=== PATIENT | female | born 1940 | race Caucasian/White ===

== ENCOUNTER 2016-06-16 16:15 | Inpatient (IN) ==
[2016-06-16 20:05] LABS: Basophils # 0.1 K/mcL (0.0-0.2); Basophils % 0.4 %; Eosinophils # 0.2 K/mcL (0.0-0.6); Eosinophils % 1.5 %; Hematocrit 33.9 % (35.3-44.9); Hemoglobin 11.3 g/dL (11.5-15.4); Immature Granulocytes % 0.3 % (0-4); Lymphocytes # 1.6 K/mcL (0.6-4.6); Lymphocytes % 12.9 %; Mean Corpuscular HGB Conc 33.3 g/dL (31.6-35.5); Mean Corpuscular Hemoglobin 27.9 pg (28.0-33.3); Mean Corpuscular Volume 83.7 fL (83.0-100.0); Mean Platelet Volume 8.5 fL (9.4-12.4); Monocytes # 1.3 K/mcL (0.0-1.3); Monocytes % 10.3 %; Neutrophils # 9.1 K/mcL (1.6-8.9); Platelet Count 277 K/mcL (140-400); Red Blood Count 4.05 M/mcL (3.82-4.97); Red Cell Distribution Width 14.3 % (11.5-14.5); Segmented Neutrophils % 74.6 %
[2016-06-16 20:17] LABS: Calcium 9.4 mg/dL (8.6-10.8); Potassium 4.9 mEq/L (3.5-4.5)
--- NOTE | 2016-06-16 22:42 | Emergency Department Note ---
Disposition Clinical Impression: Pleural effusion Disposition: Home, Self-Care Condition: Good General Adult HPI - General Chief complaint: ED Shortness of Breath/Dyspnea Stated complaint: ORI, from the cancer center Time Seen by Provider: 06/16/16 18:06 Source: family Limitations: physical limitation Nursing Notes Reviewed: Yes Vital Signs Reviewed: Yes - History of Present Illness HPI Narrative: Female patient with ovarian cancer presents with concern for dyspnea. She was at the outpatient infusion center and was having hypoxia. She was being actively transfused 1 unit of packed red cells for known anemia. Her baseline hemoglobin is between 7 and 11. Her hemoglobin today was 7.5. She has no fever , chills. She is not currently on chemotherapy. She was recently treated with antibiotics for possible pneumonia. Pain Scale: 0 - Related Data Home Medications Medication Instructions Recorded Confirmed Atorvastatin [Lipitor] 10 mg PO HS 11/30/14 06/11/16 Diltiazem HCl [Diltiazem 24Hr Cd] 240 mg PO DAILY 11/30/14 06/11/16 Glyburide/Metformin HCl 1 each PO TID 11/30/14 06/11/16 [Glyburide-Metformin 2.5-500 mg] Multivitamin [Multivitamins] 1 each PO QPM 11/30/14 06/11/16 Ondansetron [Zofran Odt] 4 mg PO Q6H PRN 11/30/14 06/11/16 Prochlorperazine Maleate 10 mg PO Q6HR PRN 11/30/14 06/11/16 [Compazine] Acetaminophen [Tylenol] 650 mg PO Q4H PRN 05/09/16 06/11/16 Cetirizine HCl [All Day Allergy] 10 mg PO DAILY 05/09/16 06/11/16 Docusate Sodium [Dok] 200 mg PO DAILY PRN 05/09/16 06/11/16 Duloxetine HCl [Cymbalta] 60 mg PO DAILY 05/09/16 06/11/16 Ferrous Sulfate [Iron] 325 mg PO DAILY 05/09/16 06/11/16 Magnesium Hydroxide [Milk of 400 mg PO Q4H PRN 05/09/16 06/11/16 Magnesia] Oxybutynin [Ditropan] 5 mg PO DAILY 05/09/16 06/11/16 Quinapril/Hydrochlorothiazide 1 each PO DAILY 05/09/16 06/11/16 [Accuretic 20-12.5 mg Tablet] Previous Rx's Medication Instructions Recorded Docusate [Colace] 100 mg PO BID #60 capsule 05/09/16 Hydrocodone/Acetaminophen [[place] 1 each PO Q4H PRN #15 tablet 05/09/16 5-325 Tablet] Levothyroxine [Synthroid] 88 mcg PO DAILY #30 tablet 06/13/16 Allergies Allergy/AdvReac Type Severity Reaction Status Date / Time cisplatin Allergy Rash Verified 06/16/16 16:24 All systems ED: reviewed and negative except as stated. 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 - Social History Smoking Status: Never smoker Smokeless Tobacco Status: No Alcohol use: Reports: none Drug use: Reports: none Physical Exam Alert and oriented, no acute distress [place] warm and dry TMs clear bilaterally, extraocular muscle movements are normal, pupils equal and reactive to light Trachea midline Cardiovascular exam is without murmur, rub, gallop Diminished bilaterally Abdominal exam is soft, nontender, no peritonitis Back is without CVA tenderness Extremities are well perfused, no cyanosis, clubbing, edema No neurological deficit, cranial nerves II/12 grossly intact, reflexes 5/5, sensation normal - General Limitations: physical limitation General appearance: alert, in no apparent distress Course Vital Signs Temperature 98.9 F 06/16/16 16:24 Pulse Rate 70 06/16/16 16:24 Respiratory Rate 18 06/16/16 16:24 Blood Pressure 148/59 06/16/16 16:24 O2 Sat by Pulse Oximetry 92 L 06/16/16 16:24 Temperature 98.9 F 06/16/16 16:24 Pulse Rate 77 06/16/16 21:50 Respiratory Rate 20 06/16/16 21:50 Blood Pressure 150/61 06/16/16 21:50 O2 Sat by Pulse Oximetry 93 L 06/16/16 21:50 Oxygen Delivery Oxygen Delivery Room Air Medical Decision Making - MDM Narrative Medical decision making narrative: 76-year-old female with concern for malignant pleural effusion. CT scan shows large fusion. Pancultures obtained. I would not initiate antibiotic therapy at this time. I will defer this to the hospitalist team. I discussed the results of the family. She has need for 2 L of supplemental oxygen at this time. She has had no fever. Plan to admit, evaluation for possible malignant pleural effusion. Anemia improved after 1 unit of outpatient Bactrim blood cells. - Medical Records Medical records reviewed: Yes I reviewed the patient's medical records. - Lab Data Lab results reviewed: Yes I reviewed the patient's lab results. Result diagrams: 06/16/16 19:58 06/16/16 19:58 Lab Results 06/16/16 06/16/16 06/16/16 Range/Units 18:46 19:48 19:58 WBC 12.2 H (4.3-11.1) K/mcL RBC 4.05 (3.82-4.97) M/mcL Hgb 11.3 L D (11.5-15.4) g/dL Hct 33.9 L (35.3-44.9) % MCV 83.7 (83.0-100.0) fL MCH 27.9 L (28.0-33.3) pg MCHC 33.3 (31.6-35.5) g/dL RDW 14.3 (11.5-14.5) % Plt Count 277 (140-400) K/mcL MPV 8.5 L (9.4-12.4) fL Immature Gran % 0.3 (0-4) % Seg Neutrophils % 74.6 % Lymphocytes % 12.9 % Monocytes % 10.3 % Eosinophils % 1.5 % Basophils % 0.4 % Neutrophils # 9.1 H (1.6-8.9) K/mcL Lymphocytes # 1.6 (0.6-4.6) K/mcL Monocytes # 1.3 (0.0-1.3) K/mcL Eosinophils # 0.2 (0.0-0.6) K/mcL Basophils # 0.1 (0.0-0.2) K/mcL Sodium (136-145) mEq/L Potassium (3.5-4.5) mEq/L Chloride (98-109) mEq/L Carbon Dioxide (19-29) mEq/L BUN (7-20) mg/dL Creatinine (0.57-1.11) mg/dL Est GFR ( Amer) (> 60) Est GFR (Non-Af Amer) (> 60) BUN/Creatinine Ratio (6-26) Glucose (70-99) mg/dL POC Glucose 71 (58-89) Calculated Osmolality (280-300) Lactic Acid (0.5-2.2) mmol/L Calcium (8.6-10.8) mg/dL Troponin I (0-0.03) ng/mL B-Natriuretic Peptide 56 (0-100) pg/mL 06/16/16 06/16/16 06/16/16 Range/Units 19:58 19:58 19:58 WBC (4.3-11.1) K/mcL RBC (3.82-4.97) M/mcL Hgb (11.5-15.4) g/dL Hct (35.3-44.9) % MCV (83.0-100.0) fL MCH (28.0-33.3) pg MCHC (31.6-35.5) g/dL RDW (11.5-14.5) % Plt Count (140-400) K/mcL MPV (9.4-12.4) fL Immature Gran % (0-4) % Seg Neutrophils % % Lymphocytes % % Monocytes % % Eosinophils % % Basophils % % Neutrophils # (1.6-8.9) K/mcL Lymphocytes # (0.6-4.6) K/mcL Monocytes # (0.0-1.3) K/mcL Eosinophils # (0.0-0.6) K/mcL Basophils # (0.0-0.2) K/mcL Sodium 126 L (136-145) mEq/L Potassium 4.9 H (3.5-4.5) mEq/L Chloride 95 L (98-109) mEq/L Carbon Dioxide 21 (19-29) mEq/L BUN 27 H (7-20) mg/dL Creatinine 1.72 H (0.57-1.11) mg/dL Est GFR ( Amer) 35 L (> 60) Est GFR (Non-Af Amer) 29 L (> 60) BUN/Creatinine Ratio 16 (6-26) Glucose 62 L (70-99) mg/dL POC Glucose (58-89) Calculated Osmolality 265 L (280-300) Lactic Acid 0.7 (0.5-2.2) mmol/L Calcium 9.4 (8.6-10.8) mg/dL Troponin I 0.01 (0-0.03) ng/mL B-Natriuretic Peptide (0-100) pg/mL
[2016-06-17] MEDS ORDERED: Ipratropium/Albuterol Neb 3 ML IH STA (01:36)
[2016-06-17] MEDS ORDERED: Naloxone 0.4 MG/ML INJ IVP PRN (02:01)
[2016-06-17] MEDS ORDERED: Acetaminophen 325 MG TABLET PO PRN ×2 (02:01→13:29)
[2016-06-17] MEDS ORDERED: Furosemide 20 MG/2 ML VIAL IVP ONE (02:03)
--- NOTE | 2016-06-17 02:05 | Internal Med History&Physical ---
Date of Encounter: 06/17/16 Time of Encounter: 01:00 Assessment and Plan (1) Pleural effusion Current visit: Yes Status: Acute Possibly due to malignant effusion. Will consult pulmonology for further advice and management. (2) Acute respiratory failure Current visit: Yes Status: Acute Likely due to large right pleural effusion and bronchospasm. I suspect PRBC transfusion possibly contributed to volume overload. She is on supplement oxygen. Continue. Bronchodilator nebulizations. Qualifiers: Respiratory failure complication: hypoxia Qualified Code(s): J96.01 - Acute respiratory failure with hypoxia (3) Peritoneal carcinoma Current visit: Yes Status: Chronic Oncologist is following the pt as out pt. On chemotherapy (4) Hypothyroidism Current visit: Yes Status: Chronic Continue home dose of synthroid Qualifiers: Hypothyroidism type: unspecified Qualified Code(s): E03.9 - Hypothyroidism , unspecified (5) DVT prophylaxis Current visit: Yes Status: Acute Heparin Internal Medicine - H&P: HPI Chief complaint: Shortness of breath Admitted From: Emergency Dept Plans for Post Hospital Care: Home History of present illness: Ms. 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 She apparently received PRBC transfusion at the infusion center. She was noted to be short of breath and hence sent to the emergency department for evaluation. Patient reports progressively worsening shortness of breath for a few days. Now feeling short of breath at rest. Also reports wheezing. She reports dry cough. No fever or chills. Denies significant chest pain. No nausea or vomiting. Denies abdominal pain, dysuria, hematuria, diarrhea. She was evaluated in the ER on the imaging showed increasing right pleural effusion, concerning for malignant effusion. She is admitted to hospitalist service for further management. Past Med Surg Social Fam HX - Past Medical History Medical history: cancer Psychiatric history: no psych history - Past Surgical History Surgical History: herniorrhaphy, other - Social History Smoking Status: Never smoker Smokeless Tobacco Status: No Alcohol use: none Drug use: none Internal Medicine - H&P: Meds Atorvastatin [Lipitor] 10 mg PO HS 11/30/14 [History] Diltiazem HCl [Diltiazem 24Hr Cd] 240 mg PO DAILY 11/30/14 [History] Glyburide/Metformin HCl [Glyburide-Metformin 2.5-500 mg] 1 each PO TID 11/30/14 [History] Multivitamin [Multivitamins] 1 each PO QPM 11/30/14 [History] Ondansetron [Zofran Odt] 4 mg PO Q6H PRN 11/30/14 [History] Prochlorperazine Maleate [Compazine] 10 mg PO Q6HR PRN 11/30/14 [History] Acetaminophen [Tylenol] 650 mg PO Q4H PRN 05/09/16 [History] Cetirizine HCl [All Day Allergy] 10 mg PO DAILY 05/09/16 [History] Docusate Sodium [Dok] 200 mg PO DAILY PRN 05/09/16 [History] Docusate [Colace] 100 mg PO BID #60 capsule 05/09/16 [Rx] Duloxetine HCl [Cymbalta] 60 mg PO DAILY 05/09/16 [History] Ferrous Sulfate [Iron] 325 mg PO DAILY 05/09/16 [History] Hydrocodone/Acetaminophen [[place] 5-325 Tablet] 1 each PO Q4H PRN #15 tablet 10/18 [Rx] Magnesium Hydroxide [Milk of Magnesia] 400 mg PO Q4H PRN 05/09/16 [History] Oxybutynin [Ditropan] 5 mg PO DAILY 05/09/16 [History] Quinapril/Hydrochlorothiazide [Accuretic 20-12.5 mg Tablet] 1 each PO DAILY 10/18 [History] Levothyroxine [Synthroid] 88 mcg PO DAILY #30 tablet 06/13/16 [Rx] Allergies cisplatin Allergy (Verified 06/16/16 16:24) Rash All Systems PM: A 10-system review of systems was performed and is negative for pertinent findings except as documented above in the HPI. - Constitutional Vitals: Temp Pulse Resp BP Pulse Ox 98.9 F 77 17 153/74 97 06/16/16 23:41 06/16/16 23:41 06/16/16 23:41 06/16/16 23:41 06/16/16 23:45 Exam: General: Short of breath at rest HEENT: Oral mucosa is moist. No conjunctival palor or scleral icterus Neck: No obvious neck swellings Lungs: Diminished breath sound on the right side. B/L wheeze present Cardiac: Regular rate and rhythm. No significant murmurs Abdomen: Distended, non tender. Bowel sounds present Neurological: Alert and oriented. No gross localizing deficits Psych: Not aggressive or agitated Extremities: Mild leg edema Skin: No generalized rash Internal Med - H&P Results - Labs CBC & Chem 7: 06/16/16 19:58 06/16/16 19:58 - Impressions ITS Impressions Chest X-Ray 06/16/16 18:22 IMPRESSION: New moderate to large right pleural effusion with adjacent atelectasis. D/ / Marleen Wyman MD / Marleen Wyman MD Interpreting Provider: Marleen Wyman MD Chest CT 06/16/16 20:20 IMPRESSION: Increasing size of right pleural effusion, now large in size with right lower lobe collapse and partial atelectasis of the right middle and upper lobes. Given enlargement of a left supraclavicular lymph node as compared to the prior examination, findings are concerning for malignant effusion. Thoracentesis may be helpful for further evaluation. D/ / Miguelangel Douglas MD / Miguelangel Douglas MD Interpreting Provider: Miguelangel Douglas MD
[2016-06-17] MEDS: *HR* Heparin 5,000 UNIT/ML VIAL SQ SCH ×2 (09:47→21:48)
--- NOTE | 2016-06-17 12:57 | Electrocardiograph Report ---
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
[2016-06-17] MEDS: Diltiazem CD (24hr) 240 MG CAPSULE PO SCH (13:18)
[2016-06-17] MEDS ORDERED: *HR* HYDROcodone/Acet 5/325 mg TABLET PO PRN (13:29)
--- NOTE | 2016-06-17 14:12 | Event Note ---
<Mimi Alcantara - Last Filed: 06/17/16 15:01> Date of Encounter: 06/17/16 Time of Encounter: 09:30 76 year old pleasant female evaluated at bedside. She states that she feels "pretty good" but is still short of breath. She denies chest pain. She reports having a non productive cough without sputum production. She denies nausea, vomiting, diarrhea, fever, chills. Exam: General: alert and oriented x3, no acute distress. vital signs reviewed and within normal limits. Patient had sat of 98% on 2L NC CV: RRR, no murmurs noted. Chemo port in place on right side of chest. Respiratory: Decreased breath sounds present on right lower lobe. Wheezing present bilaterally. Abdomen: distended, soft, diffuse mild tenderness to palpation. Extremities: no cyanosis. Trace lower extremity edema appreciated. Discoloration present on anterior part of lower extremities bilaterally. Assessment/Plan 1. Pleural Effusion: CXR showed increasing size of right pleural effusion with right lower lobe collapse and partial atalectasis of right middle and upper lobes. Etiology likely malignant in setting of cancer. Pulmonology on board. Will discuss with patient the risks and benefits of thoracentesis vs. Pleurx Catheter placement. Patient stated she would like to discuss these options with her family before she makes a final decision. 2. Acute Respiratory failure: Patient came in with CC of shortness of breath that has progressively worsened. Etiology likely due to pleural effusion. Continue Oxygen Nasal Canula. Plan as above. 3. CORNEL: Cr measured at 1.72. Patient has had elevated Cr dating back to February. She has a history of right ureteral stent placement by Dr. Weathers on 05/09/16. Retroperitoneal ultrasound ordered-consider possible obstruction from metastatic peritoneal adenocarcinoma. Normal saline at 50ml/hr. 4. Hyponatremia: Sodium measured at 126. Osm 265. Have ordered urine lytes. 5. Hypothyroidism: Continue home med levothyroxine. 6. Diabetes: ACHS acuchecks with ADA diet. NPO after midnight. 7. Peritoneal Carcinoma: Patient sees Dr. Fabián Gottlieb at the [facility] and also sees Dr. Hampton at [place]. Patient states that she was getting chemotherapy, but is now on a break from her chemo (since April). Oncology was contacted and made aware that patient is in the hospital. 8. DVT prophylaxis: Heparin SQ <Nathaniel Caraballo - Last Filed: 06/17/16 17:18> Date of Encounter: 06/17/16 Ms. German was admitted this AM with respiratory failure due to pleural effusion. She and her niece are discussing thoracentesis versus Pleurx. I explained difference between the two procedures. Palliative care consulted. Hyponatremia work up.
[2016-06-17] MEDS ORDERED: D5% in Water 1,000 ML IV PRN (14:48)
[2016-06-17] MEDS ORDERED: *HR* Dextrose 50 % in Water (Syg) 50 ML SYRINGE IVP PRN (14:48)
[2016-06-17] MEDS ORDERED: Dextrose Gel 15 GM PO PRN ×2 (14:48)
[2016-06-17] MEDS: Lisinopril-HCTZ 20-12.5mg TABLET PO SCH (14:54)
--- NOTE | 2016-06-17 16:22 | Palliative - Consult Note ---
Date of Encounter: 06/17/16 Time of Encounter: 16:10 - Assessment and Plan (1) Cancer associated pain Current Visit: Yes Status: Acute Assessment and plan: Continue [place] as ordered and monitor. Has not required since admission however. She states she is quite comfortable at this point. (2) Constipation Current Visit: Yes Status: Acute Assessment and plan: Continue Colace - pt only desires on a PRN bases at this time. will monitor BM 's and adjust as needed. Qualifiers: Constipation type: unspecified constipation type Qualified Code(s): K59.00 - Constipation, unspecified (3) Nausea Current Visit: Yes Status: Acute Assessment and plan: Order Ondansetron for PRN use if needed. Patient has had increased nausea over the last 2 weeks. Monitor (4) Counseling regarding advanced care planning and goals of care Current Visit: Yes Status: Acute Assessment and plan: Met with pt and pt mary Peters (healthcare POA) re: goals of care. Patient leaning towards pleurx cath for pleural effusion. Discussed risks vs. intermittent drainage for assistance with dyspnea management. Discussed that unable to determine how quickly fluid may re-accumulate. Discussed code status and pt transitioned to DNRCC. Completed state form and copies provided to pt/ niece. Discussed trajectory of illness and continue treatment - nilindsey states that [facility] oncologist states no further treatment available unless new clinical trial in July. Discussed hospice care, and that it is reasonable to get services and support structure started and they can assist with management of pleurx catheter and management of pain and other symptoms as well as social/ spiritual support. Nilindsey verbalized understanding and they will discuss. D/W Dr. Caraballo and Dr. Gaxiola. Will f/u in am. (5) Pleural effusion Current Visit: Yes Status: Acute Assessment and plan: Awaiting decision of thoracentesis vs pleurx cath. Pulmonology following. (6) Peritoneal carcinoma Current Visit: Yes Status: Chronic Palliative-CN HPI - Data of Consult Consult date: 06/17/16 Requesting Physician: Nathaniel Caraballo DO Primary Care Provider: Miguelangel Nova MD - Consult Narrative History of present illness: Ms. German is a 76 year old female CC: Nathaniel Caraballo DO Past Med Surg Social Fam HX - Past Medical History Medical history: cancer Psychiatric history: no psych history - Past Surgical History Surgical History: herniorrhaphy, other - Social History Smoking Status: Never smoker Smokeless Tobacco Status: No Alcohol use: none Drug use: none Medications and Allergies Atorvastatin [Lipitor] 10 mg PO HS 11/30/14 [History] Diltiazem HCl [Diltiazem 24Hr Cd] 240 mg PO DAILY 11/30/14 [History] Glyburide/Metformin HCl [Glyburide-Metformin 2.5-500 mg] 1 each PO TID 11/30/14 [History] Multivitamin [Multivitamins] 1 each PO QPM 11/30/14 [History] Acetaminophen [Tylenol] 650 mg PO Q4H PRN 05/09/16 [History] Cetirizine HCl [All Day Allergy] 10 mg PO DAILY 05/09/16 [History] Docusate Sodium [Dok] 200 mg PO DAILY PRN 05/09/16 [History] Duloxetine HCl [Cymbalta] 60 mg PO DAILY 05/09/16 [History] Ferrous Sulfate [Iron] 325 mg PO DAILY 05/09/16 [History] Hydrocodone/Acetaminophen [[place] 5-325 Tablet] 1 each PO Q4H PRN #15 tablet 10/18 [Rx] Magnesium Hydroxide [Milk of Magnesia] 400 mg PO Q4H PRN 05/09/16 [History] Oxybutynin [Ditropan] 5 mg PO DAILY 05/09/16 [History] Quinapril/Hydrochlorothiazide [Accuretic 20-12.5 mg Tablet] 1 each PO DAILY 10/18 [History] Levothyroxine [Synthroid] 88 mcg PO DAILY #30 tablet 06/13/16 [Rx] Allergies cisplatin Allergy (Verified 06/17/16 08:33) Rash All systems: reviewed and no additional remarkable complaints except as stated ( shortness of breath on exertion, occasional nausea, occasional abd pain) Palliative Care-Exam - Constitutional Vitals: Temp Pulse Resp BP Pulse Ox 97.6 F 90 18 173/98 96 06/17/16 12:37 06/17/16 12:37 06/17/16 12:37 06/17/16 12:37 06/17/16 12:37 General appearance: Present: no acute distress - Head Head Exam: Present: normal inspection, normocephalic - Expanded Respiratory Exam Location: decreased breath sounds: Right, Lower - Cardiovascular Cardiovascular exam: Present: +S1, +S2 - GI/Abdominal Exam GI/Abdominal exam: Present: normal bowel sounds, soft - Additional comments: Incontinent at times, wears depends - Extremities Exam Extremities exam: Present: normal capillary refill, normal inspection - Neurological Exam Neurological exam: Present: alert, oriented X3, strengths equal and symetr throughout - Psychiatric Psychiatric exam: Present: normal affect, normal mood - Skin Skin exam: Present: dry, pallor, warm Internal Medicine - CN: Reslt - Labs CBC & Chem 7: 06/16/16 19:58 06/16/16 19:58 Consult Discharge Plan - Plan Referrals: Miguelangel Nova MD [Primary Care Provider] - Palliative Quality Palliative Quality: Screen for Code Status: Yes, Screen for Goals of Care: Yes, Screen for Pain: Yes, If Pain Regimen Started, Initiate Bowel Regimen: Yes, Screen for Nausea/Vomitting: Yes
[2016-06-17] MEDS ORDERED: Ondansetron 4 MG/2 ML VIAL IVP PRN (16:29)
[2016-06-17] MEDS: Insulin LISPRO 300 UNITS/3 ML VIAL SQ SCH ×2 (17:05→21:49)
[2016-06-17] MEDS: 0.9 % Sodium Chloride 1,000 ML IVC SCH (17:48)
--- NOTE | 2016-06-17 18:27 | Oncology Inp Consult Note ---
Date of Encounter: 06/17/16 Time of Encounter: 17:00 Assessment and Plan (1) Peritoneal carcinoma Status: Chronic Assessment and plan: Peritoneal carcinomatosis most in 2011 status post multiple chemotherapy treatments including carbotaxol, gemcitabine cisplatin, Doxil, Taxol, per family 's report she tolerated it with difficulty. Shortness of breath we discussed imaging findings in detail with family, Likely malignant effusion will obtain fluid for cytology. Palliative care is falling outpatient closely. Her last chemotherapy was in number 2015, and she follows up at [facility] (resides at assisted living facility), no further chemotherapy is planned by her NAILER MACHINE specialist due to toxicity and her general condition. Since she is not interested in pursuing chemotherapy we discussed Pleurx catheter drainage and discharge home with palliative care/hospice option. - Data of Consult Requesting Physician: Nathaniel Caraballo DO Primary Care Provider: Miguelangel Nova MD - Consult Narrative Reason for consult: peritoneal carcinoma History of present illness: Ms. German is a 76 year old female diagnosis of metastatic papillary serous peritoneal carcinoma has been seen in oncology clinic in the past, status post chemotherapy patient had pursued treatments to [facility] and her last chemotherapy treatment was in March 2016. She follows [facility] and had taken chemotherapy including cisplatin and Gemzar, Taxol and had developed reactions to treatment. Patient's family she has been undergoing treatments for the last 4 years or so. She also has chronic kidney disease, possible dementia anemia, hydronephrosis status post ureteral stent placement in the past. Patient was seen last in the clinic in June [id number]. She was not interested in taking hospice at that time patient not her family was interested in her pursuing any form of chemotherapy due to the side effects she has had. Patient had shortness of breath new onset for [address] scan of the chest that showed large right pleural effusion with right lower lobe collapse. She has enlarged left supraclavicular lymph node which had increased in size in comparison to a scan from number of 2015. She had 25 gene panel which was tested and negative for any mutations in 2014. Patient feels comfortable at rest. Her appetite overall has been good. She has abdominal fullness and shortness of breath on exertion. Past Med Surg Social Fam HX - Past Medical History Medical history: cancer Psychiatric history: no psych history - Past Surgical History Surgical History: herniorrhaphy, other - Social History Smoking Status: Never smoker Smokeless Tobacco Status: No Alcohol use: none Drug use: none Medications and Allergies Atorvastatin [Lipitor] 10 mg PO HS 11/30/14 [History] Diltiazem HCl [Diltiazem 24Hr Cd] 240 mg PO DAILY 11/30/14 [History] Glyburide/Metformin HCl [Glyburide-Metformin 2.5-500 mg] 1 each PO TID 11/30/14 [History] Multivitamin [Multivitamins] 1 each PO QPM 11/30/14 [History] Acetaminophen [Tylenol] 650 mg PO Q4H PRN 05/09/16 [History] Cetirizine HCl [All Day Allergy] 10 mg PO DAILY 05/09/16 [History] Docusate Sodium [Dok] 200 mg PO DAILY PRN 05/09/16 [History] Duloxetine HCl [Cymbalta] 60 mg PO DAILY 05/09/16 [History] Ferrous Sulfate [Iron] 325 mg PO DAILY 05/09/16 [History] Hydrocodone/Acetaminophen [[place] 5-325 Tablet] 1 each PO Q4H PRN #15 tablet 10/18 [Rx] Magnesium Hydroxide [Milk of Magnesia] 400 mg PO Q4H PRN 05/09/16 [History] Oxybutynin [Ditropan] 5 mg PO DAILY 05/09/16 [History] Quinapril/Hydrochlorothiazide [Accuretic 20-12.5 mg Tablet] 1 each PO DAILY 10/18 [History] Levothyroxine [Synthroid] 88 mcg PO DAILY #30 tablet 06/13/16 [Rx] Allergies cisplatin Allergy (Verified 06/17/16 08:33) Rash Review of systems: as in HPI Oncology - Exam - Constitutional Vitals: Temp Pulse Resp BP Pulse Ox 97.7 F 97 16 145/73 95 06/17/16 16:21 06/17/16 16:21 06/17/16 16:37 06/17/16 16:21 06/17/16 16:37 General appearance: obese - Head Head exam: Present: atraumatic, normal inspection - Eye Eye exam: Present: sclera anicteric - ENT ENT exam: Present: mucous membranes moist Additional comments: O2NC - Neck Additional comments: no palpable adenopathy - Respiratory Additional comments: DEcrea ae rt - Cardiovascular Cardiovascular exam: Present: +S1, +S2 - Neurological Exam Neurological exam: Present: alert, CN II-XII intact, oriented X3 - Psychiatric Psychiatric exam: Present: normal affect Oncology - Results - Imaging and Cardiology CT scan - chest Status: image reviewed by me Consult Discharge Plan - Plan Referrals: Miguelangel Nova MD [Primary Care Provider] -
[2016-06-17 21:26] LABS: Potassium,Urine 22.2 mEq/L
--- NOTE | 2016-06-17 22:18 | Pulmonology Consult Note ---
Date of Encounter: 06/17/16 Time of Encounter: 09:35 Assessment and Plan (1) Acute respiratory failure Current Visit: Yes Status: Acute I believe this is mainly from her large most likely malignant pleural effusion. I have explained to patient about different treatment options from monitoring, which I didn't recommend due to her respiratory distress to diagnostic and therapeutic thoracentesis to PleurX plural catheter placement and that is what I recommended due to her underlying malignancy. She wanted to talk to her family first and subsequently she agreed to have Pleurx catheter according to primary team. Will arrange it for her tomorrow. I have explained to patient each procedure risks, benefits and alternatives. Qualifiers: Respiratory failure complication: hypoxia Qualified Code(s): J96.01 - Acute respiratory failure with hypoxia (2) Pleural effusion Current Visit: Yes Status: Acute Most likely this is malignant and I feel PleurX pleural catheter would be the best option for her. However other options explained to patient as well. 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 Patient has worsening of her shortness of brath at rest. Patient denies any sputum production, but she has dry cough and some wheezing, but no chest pain. She denies any thoracentesis in the past. She denies any fever or chills and no nausea or vomitin. Pulmonary consulted to manage her most likely malignant pleural effusion. Past Med Surg Social Fam HX - Past Medical History Medical history: cancer Psychiatric history: no psych history - Past Surgical History Surgical History: herniorrhaphy, other - Social History Smoking Status: Never smoker Smokeless Tobacco Status: No Alcohol use: none Drug use: none Medications and Allergies Atorvastatin [Lipitor] 10 mg PO HS 11/30/14 [History] Diltiazem HCl [Diltiazem 24Hr Cd] 240 mg PO DAILY 11/30/14 [History] Glyburide/Metformin HCl [Glyburide-Metformin 2.5-500 mg] 1 each PO TID 11/30/14 [History] Multivitamin [Multivitamins] 1 each PO QPM 11/30/14 [History] Acetaminophen [Tylenol] 650 mg PO Q4H PRN 05/09/16 [History] Cetirizine HCl [All Day Allergy] 10 mg PO DAILY 05/09/16 [History] Docusate Sodium [Dok] 200 mg PO DAILY PRN 05/09/16 [History] Duloxetine HCl [Cymbalta] 60 mg PO DAILY 05/09/16 [History] Ferrous Sulfate [Iron] 325 mg PO DAILY 05/09/16 [History] Hydrocodone/Acetaminophen [[place] 5-325 Tablet] 1 each PO Q4H PRN #15 tablet 10/18 [Rx] Magnesium Hydroxide [Milk of Magnesia] 400 mg PO Q4H PRN 05/09/16 [History] Oxybutynin [Ditropan] 5 mg PO DAILY 05/09/16 [History] Quinapril/Hydrochlorothiazide [Accuretic 20-12.5 mg Tablet] 1 each PO DAILY 10/18 [History] Levothyroxine [Synthroid] 88 mcg PO DAILY #30 tablet 06/13/16 [Rx] Allergies cisplatin Allergy (Verified 06/17/16 08:33) Rash All Systems: A 10-system review of systems was performed and is negative for pertinent findings except as documented above in the HPI. Physical Examination Vital Signs: Vital Signs, Last 4 Hours Temp Pulse Resp BP Pulse Ox 06/17/16 19:50 97.8 F 82 17 147/79 97 General appearance: appears uncomfortable (Shortness of breath) Eyes: nonicteric ENT: oropharynx dry Neck: supple, JVD Effort: mildly labored Auscultation: left: clear, right: diminished breath sounds Percussion: left: not dull, right: dull Cardiovascular: regular rate and rhythm Gastrointestinal: normoactive bowel sounds, soft Extremities: no cyanosis normal mental status, non-focal exam depressed Results - Laboratory Findings CBC and BMP: 06/16/16 19:58 06/16/16 19:58 Abnormal lab findings: Abnormal lab results WBC 12.2 K/mcL (4.3-11.1) H 06/16/16 19:58 Hgb 11.3 g/dL (11.5-15.4) L D 06/16/16 19:58 Hct 33.9 % (35.3-44.9) L 06/16/16 19:58 MCH 27.9 pg (28.0-33.3) L 06/16/16 19:58 MPV 8.5 fL (9.4-12.4) L 06/16/16 19:58 Neutrophils # 9.1 K/mcL (1.6-8.9) H 06/16/16 19:58 Sodium 126 mEq/L (136-145) L 06/16/16 19:58 Potassium 4.9 mEq/L (3.5-4.5) H 06/16/16 19:58 Chloride 95 mEq/L (98-109) L 06/16/16 19:58 BUN 27 mg/dL (7-20) H 06/16/16 19:58 Creatinine 1.72 mg/dL (0.57-1.11) H 06/16/16 19:58 Est GFR ( Amer) 35 (> 60) L 06/16/16 19:58 Est GFR (Non-Af Amer) 29 (> 60) L 06/16/16 19:58 Glucose 62 mg/dL (70-99) L 06/16/16 19:58 POC Glucose 166 (58-89) H 06/17/16 19:54 Calculated Osmolality 265 (280-300) L 06/16/16 19:58 - Diagnostic Findings CT scan - chest: report reviewed, image reviewed - Clinical Findings Intake & Output: Intake & Output 06/17/16 06/17/16 06/17/16 07:59 15:59 23:59 Intake Total 0 / 0 Output Total 300 / 300 800 / 800 0 / 0 Balance -300 / -300 -800 / -800 0 / 0 Weight 73.7 kg Consult Discharge Plan - Plan Referrals: Miguelangel Nova MD [Primary Care Provider] -
[2016-06-17] MEDS: Ipratropium/Albuterol Neb 3 ML IH PRN (23:38)
[2016-06-18] MEDS: Ipratropium/Albuterol Neb 3 ML IH PRN (04:36)
[2016-06-18 05:20] LABS: Basophils % 0.4 %; Eosinophils # 0.1 K/mcL (0.0-0.6); Eosinophils % 1.2 %; Hematocrit 31.7 % (35.3-44.9); Hemoglobin 10.7 g/dL (11.5-15.4); Immature Granulocytes % 0.5 % (0-4); Lymphocytes # 1.3 K/mcL (0.6-4.6); Lymphocytes % 12.5 %; Mean Corpuscular HGB Conc 33.8 g/dL (31.6-35.5); Mean Corpuscular Hemoglobin 28.4 pg (28.0-33.3); Mean Corpuscular Volume 84.1 fL (83.0-100.0); Monocytes # 1.1 K/mcL (0.0-1.3); Monocytes % 11.1 %; Neutrophils # 7.5 K/mcL (1.6-8.9); Platelet Count 257 K/mcL (140-400); Red Blood Count 3.77 M/mcL (3.82-4.97); Red Cell Distribution Width 14.2 % (11.5-14.5); Segmented Neutrophils % 74.3 %
[2016-06-18 05:38] LABS: Potassium 4.4 mEq/L (3.5-4.5)
[2016-06-18] MEDS: Insulin LISPRO 300 UNITS/3 ML VIAL SQ SCH ×4 (08:53→20:52)
[2016-06-18] MEDS ORDERED: Lisinopril-HCTZ 20-12.5mg TABLET PO SCH (09:00)
--- NOTE | 2016-06-18 09:32 | Internal Med Progress Note ---
<JulioMimi lundberg - Last Filed: 06/18/16 09:29> Date of Encounter: 06/18/16 Time of Encounter: 07:45 - Assessment and plan (1) Pleural effusion Current Visit: Yes Status: Acute Assessment and plan: CXR showed increasing size of right pleural effusion with lower lobe collapse and partial atalectasis of right middle and upper lobes. Etiology likely malignant in setting of cancer. Pulmonology on board. Discussed with patient risks and benefits of PleurX catheter placement vs. Thoracentesis. Patient has elected PleurX catheter placement. Consent obtained. Patient NPO since midnight, will get PleurX catheter placement later today per pulmonology. (2) Acute respiratory failure Current Visit: Yes Status: Acute Assessment and plan: Patient came in with CC of shortness of breath that has progressively worsened. Etiology likely due to pleural effusion. Continue oxygen nasal canula. Plan as above. Qualifiers: Respiratory failure complication: hypoxia Qualified Code(s): J96.01 - Acute respiratory failure with hypoxia (3) CORNEL (acute kidney injury) Current Visit: Yes Status: Acute Assessment and plan: Cr measured at 1.73, stable from yesterday. Patient has elevated Cr dating back to February. She has a history of right ureteral stent placemen by Dr. Weathers on 05/09/16. Retroperitoneal ultrasound orderd yesterday: showed moderate right hydronephrosis, absence of right ureteral jet at the bladder, which is also suggestive of obstruction. No evidence of left hydronephrosis, small amount of free pelvic fluid, moderate postvoid residual volume within the bladder. (4) Hyponatremia Current Visit: Yes Status: Acute Assessment and plan: Sodium today measured at 127-stable. Could be due to pleural effusion. Patient is euvolemic upon examination. 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 Will continue to monitor. (5) Hypothyroidism Current Visit: Yes Status: Chronic Assessment and plan: Continue home med levothyroxine. Qualifiers: Hypothyroidism type: unspecified Qualified Code(s): E03.9 - Hypothyroidism , unspecified (6) Diabetes Current Visit: Yes Status: Acute Assessment and plan: Continue with accuchecks and low dose sliding scale insulin. 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 They are following and have discussed imaging findings with the patient. Patient also informed that this is likely a malignant pleural effusion. Oncology has recommended discharge home with palliative/hospice. Per oncology: Peritoneal carcinomatosis most in 2012 status post multiple chemotherapy treatments including carbotaxol, gemcitabine cisplatin, Doxil, Taxol, per family 's report she tolerated it with difficulty. Her last chemotherapy was in number of 2015, and she follows up at [facility] (resides at assisted living facility), no further chemotherapy is planned by her ONLINE MARKETING DIRECTOR specialist due to toxicity and her general condition. Since she is not interested in pursuing chemotherapy, discussed Pleurx catheter drainage. (8) DVT prophylaxis Current Visit: Yes Status: Acute Assessment and plan: Heparin SQ - Subjective Interval history: 76 year old female evaluated at bedside. She states that she had no problems or issues overnight. She also states that she is very nervous about her Pleurx catheter placement procedure later today. She denies nausea, vomiting, diarrhea , fever, chills. She denies any pain or shortness of breath, or dizziness. - Constitutional Vitals: Temp Pulse Resp BP Pulse Ox 98.3 F 79 16 135/61 97 06/18/16 07:53 06/18/16 07:53 06/18/16 07:53 06/18/16 07:53 06/18/16 07:53 General appearance: Present: mild distress (due to wheezing. ), A&O X 3, pleasant - Head Head exam: Present: atraumatic, normocephalic - Neck Neck exam general surgery: Present: supple, trachea midline - Respiratory Respiratory exam: Present: decreased breath sounds (in right upper lobe and right lower lobe. ), wheezes (on left side. ) - Cardiovascular Cardiovascular exam: Present: distant heart sounds - GI/Abdominal GI/Abdominal exam: Present: normal bowel sounds, soft. Absent: distended, tenderness - Extremities Exam Extremities exam: Absent: cyanotic, pedal edema - Psychiatric Psychiatric exam: Present: anxious Internal Medicine: Result - Labs CBC & Chem 7: 06/18/16 04:20 06/18/16 04:20 Labs: Short CBC 06/18/16 Range/Units 04:20 WBC 10.1 (4.3-11.1) K/mcL Hgb 10.7 L (11.5-15.4) g/dL Hct 31.7 L (35.3-44.9) % Plt Count 257 (140-400) K/mcL Neutrophils # 7.5 (1.6-8.9) K/mcL BMP 06/18/16 04:20 Sodium 127 L Potassium 4.4 Chloride 93 L Carbon Dioxide 22 BUN 27 H Creatinine 1.73 H Glucose 175 H Calcium 9.0 - Impressions Impressions Retroperitoneum Ultrasound 06/17/16 15:08 IMPRESSION: Moderate right hydronephrosis. Absence of right ureteral jet at the bladder is also suggestive of obstruction. No evidence of left hydronephrosis. Small amount of free pelvic fluid. Moderate postvoid residual within the bladder. D/ / Miguelangel Douglas MD / Miguelangel Douglas MD Interpreting Provider: Miguelangel Douglas MD Consult Discharge Plan - Plan Referrals: Miguelangel Nova MD [Primary Care Provider] - <Nathaniel Caraballo - Last Filed: 06/18/16 17:34> Date of Encounter: 06/18/16 - Assessment and plan (1) Acute respiratory failure Current Visit: Yes Status: Acute Qualifiers: Respiratory failure complication: hypoxia Qualified Code(s): J96.01 - Acute respiratory failure with hypoxia (2) Hyponatremia Current Visit: Yes Status: Acute (3) Pleural effusion Current Visit: Yes Status: Acute (4) Peritoneal carcinoma Current Visit: Yes Status: Chronic (5) Diabetes Current Visit: Yes Status: Acute Qualifiers: Diabetes mellitus type: type 2 Diabetes mellitus complication status: without complication Diabetes mellitus 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 school 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 insulin use: without shelter use Qualified Code(s): E11.9 - Type 2 diabetes mellitus without complications (6) Hypothyroidism Current Visit: Yes Status: Chronic Qualifiers: Hypothyroidism type: unspecified Qualified Code(s): E03.9 - Hypothyroidism , unspecified (7) Hypertension Current Visit: Yes Status: Acute Qualifiers: Hypertension type: essential hypertension Qualified Code(s): I10 - Essential (primary) hypertension - Constitutional Vitals: Temp Pulse Resp BP Pulse Ox 98.8 F 75 16 129/59 94 L 06/18/16 16:36 06/18/16 16:36 06/18/16 16:36 06/18/16 16:36 06/18/16 16:36 Internal Medicine: Result - Labs CBC & Chem 7: 06/18/16 04:20 06/18/16 04:20 Labs: Short CBC 06/18/16 Range/Units 04:20 WBC 10.1 (4.3-11.1) K/mcL Hgb 10.7 L (11.5-15.4) g/dL Hct 31.7 L (35.3-44.9) % Plt Count 257 (140-400) K/mcL Neutrophils # 7.5 (1.6-8.9) K/mcL BMP 06/18/16 04:20 Sodium 127 L Potassium 4.4 Chloride 93 L Carbon Dioxide 22 BUN 27 H Creatinine 1.73 H Glucose 175 H Calcium 9.0 - Impressions Impressions Retroperitoneum Ultrasound 06/17/16 15:08 IMPRESSION: Moderate right hydronephrosis. Absence of right ureteral jet at the bladder is also suggestive of obstruction. No evidence of left hydronephrosis. Small amount of free pelvic fluid. Moderate postvoid residual within the bladder. D/ / Miguelangel Douglas MD / Miguelangel Douglas MD Interpreting Provider: Miguelangel Douglas MD Chest X-Ray 06/18/16 12:10 IMPRESSION: Tiny right apical pneumothorax. Chest tube as discussed, with decrease of the previous pleural fusion, small residual right pleural effusion remaining D/ / Tien Bustos MD / Tien Bustos MD Interpreting Provider: Tien Bustos MD - Attending Attestation I examined this patient and my medical decision-making was reviewed with the Resident Physician on 06/18/16. I agree with the documented findings, disposition and treatment plan as described except to the extent set forth below. Ms. German is currently admitted for acute hypoxic respiratory failure due to large pleural effusion. She remains high risk due to potential of worsening respiratory symptoms and failure. Ms. German has returned from catheter placement. She had 2 liters removed and is breathing better. Pain is not an issue. Working on d/c planning. Exam Alert. Comfortable Heart reg No wheeze I/P 1. Acute hypoxic resp failure 2. Pleural effusion - presumed metastatic Further diagnoses and plan as above.
--- NOTE | 2016-06-18 11:39 | Palliative Progress Note ---
Date of Encounter: 06/18/16 Time of Encounter: 09:45 - Assessment and plan (1) Cancer associated pain Current Visit: Yes Status: Acute Assessment and plan: Continue [place] PRN. Has not utilized in the last 24 hours (2) Constipation Current Visit: Yes Status: Acute Assessment and plan: Continue Colace PRN per pt request . + BM yesterday Qualifiers: Constipation type: unspecified constipation type Qualified Code(s): K59.00 - Constipation, unspecified (3) Nausea Current Visit: Yes Status: Acute Assessment and plan: Continue Ondansetron and monitor. (4) Counseling regarding advanced care planning and goals of care Current Visit: Yes Status: Acute Assessment and plan: Awaiting pleurx cath today. Rosa Maria Clover (POA) not present at the time of my visit. Will f/u regarding if they desire to enroll in Hospice upon discharge. (5) Pleural effusion Current Visit: Yes Status: Acute (6) Peritoneal carcinoma Current Visit: Yes Status: Chronic - Time Spent With Patient Total time spent is greater than 50% in coordination of care (as documented) at patient's floor/unit and/or counseling patient: 25 - 35 minutes - Subjective Interval history: Patient awake and alert. States she is having some anxiety regarding pleurx cath placement. Denies pain, still with shortness of breath with any exertion. - Constitutional Vitals: Abnormal lab results RBC 3.77 M/mcL (3.82-4.97) L 06/18/16 04:20 Hgb 10.7 g/dL (11.5-15.4) L 06/18/16 04:20 Hct 31.7 % (35.3-44.9) L 06/18/16 04:20 Sodium 127 mEq/L (136-145) L 06/18/16 04:20 Chloride 93 mEq/L (98-109) L 06/18/16 04:20 BUN 27 mg/dL (7-20) H 06/18/16 04:20 Creatinine 1.73 mg/dL (0.57-1.11) H 06/18/16 04:20 Est GFR ( Amer) 35 (> 60) L 06/18/16 04:20 Est GFR (Non-Af Amer) 29 (> 60) L 06/18/16 04:20 Glucose 175 mg/dL (70-99) H 06/18/16 04:20 POC Glucose 166 (58-89) H 06/17/16 19:54 Calculated Osmolality 273 (280-300) L 06/18/16 04:20 General appearance: Present: mild distress - Expanded Respiratory Exam Location: decreased breath sounds: Right, Upper, Lower - Cardiovascular Cardiovascular exam: Present: +S1, +S2 - GI/Abdominal GI/Abdominal exam: Present: normal bowel sounds, soft - Extremities Exam Extremities exam: Present: normal capillary refill, normal inspection - Neurological Exam Neurological exam: Present: alert, oriented X3, strengths equal and symetr throughout - Skin Skin exam: Present: dry, pallor, warm Palliative Quality Palliative Quality: Screen for Code Status: Yes, Screen for Goals of Care: Yes, Screen for Pain: Yes, If Pain Regimen Started, Initiate Bowel Regimen: Yes, Screen for Nausea/Vomitting: Yes Code Status: 06/17/16 16:20 DNR [Resuscitation Status: Active] [RES] Routine Comment: Resuscitation Status: DNR-Comfort Care - Labs CBC & Chem 7: 06/18/16 04:20 06/18/16 04:20 Labs: Laboratory Results - last 24 hr 06/17/16 06/17/16 06/17/16 08:19 12:38 12:50 WBC RBC Hgb Hct MCV MCH MCHC RDW Plt Count MPV Immature Gran % Seg Neutrophils % Lymphocytes % Monocytes % Eosinophils % Basophils % Neutrophils # Lymphocytes # Monocytes # Eosinophils # Basophils # Sodium Potassium Chloride Carbon Dioxide BUN Creatinine Est GFR ( Amer) Est GFR (Non-Af Amer) BUN/Creatinine Ratio Glucose POC Glucose 127 H 131 H Calculated Osmolality Calcium Urine Osmolality 329 Urine Creatinine 33 Urine Sodium 97.0 Urine Potassium 22.2 06/17/16 06/17/16 06/17/16 14:57 16:41 19:54 WBC RBC Hgb Hct MCV MCH MCHC RDW Plt Count MPV Immature Gran % Seg Neutrophils % Lymphocytes % Monocytes % Eosinophils % Basophils % Neutrophils # Lymphocytes # Monocytes # Eosinophils # Basophils # Sodium Potassium Chloride Carbon Dioxide BUN Creatinine Est GFR ( Amer) Est GFR (Non-Af Amer) BUN/Creatinine Ratio Glucose POC Glucose 130 H 220 H 166 H Calculated Osmolality Calcium Urine Osmolality Urine Creatinine Urine Sodium Urine Potassium 06/18/16 06/18/16 04:20 04:20 WBC 10.1 RBC 3.77 L Hgb 10.7 L Hct 31.7 L MCV 84.1 MCH 28.4 MCHC 33.8 RDW 14.2 Plt Count 257 MPV 10.0 Immature Gran % 0.5 Seg Neutrophils % 74.3 Lymphocytes % 12.5 Monocytes % 11.1 Eosinophils % 1.2 Basophils % 0.4 Neutrophils # 7.5 Lymphocytes # 1.3 Monocytes # 1.1 Eosinophils # 0.1 Basophils # 0.0 Sodium 127 L Potassium 4.4 Chloride 93 L Carbon Dioxide 22 BUN 27 H Creatinine 1.73 H Est GFR ( Amer) 35 L Est GFR (Non-Af Amer) 29 L BUN/Creatinine Ratio 16 Glucose 175 H POC Glucose Calculated Osmolality 273 L Calcium 9.0 Urine Osmolality Urine Creatinine Urine Sodium Urine Potassium - Impressions Impressions Retroperitoneum Ultrasound 06/17/16 15:08 IMPRESSION: Moderate right hydronephrosis. Absence of right ureteral jet at the bladder is also suggestive of obstruction. No evidence of left hydronephrosis. Small amount of free pelvic fluid. Moderate postvoid residual within the bladder. D/ / Miguelangel Douglas MD / Miguelangel Douglas MD Interpreting Provider: Miguelangel Douglas MD Consult Discharge Plan - Plan Referrals: Miguelangel Nova MD [Primary Care Provider] -
[2016-06-18] MEDS: *HR* Heparin 5,000 UNIT/ML VIAL SQ SCH ×2 (12:52→20:47)
[2016-06-18] MEDS: Diltiazem CD (24hr) 240 MG CAPSULE PO SCH (13:07)
[2016-06-18] MEDS: Lisinopril-HCTZ 20-12.5mg TABLET PO SCH (13:07)
[2016-06-18] MEDS: 0.9 % Sodium Chloride 1,000 ML IVC SCH (16:47)
[2016-06-19 04:25] LABS: Basophils % 0.2 %; Eosinophils # 0.3 K/mcL (0.0-0.6); Hematocrit 31.4 % (35.3-44.9); Hemoglobin 10.4 g/dL (11.5-15.4); Immature Granulocytes % 0.3 % (0-4); Immature Platelets 1.3 % (1.1-6.1); Lymphocytes # 1.3 K/mcL (0.6-4.6); Lymphocytes % 14.6 %; Mean Corpuscular HGB Conc 33.1 g/dL (31.6-35.5); Mean Corpuscular Hemoglobin 27.7 pg (28.0-33.3); Mean Corpuscular Volume 83.7 fL (83.0-100.0); Mean Platelet Volume 8.5 fL (9.4-12.4); Monocytes % 11.3 %; Neutrophils # 6.3 K/mcL (1.6-8.9); Platelet Count 250 K/mcL (140-400); Red Blood Count 3.75 M/mcL (3.82-4.97); Red Cell Distribution Width 14.2 % (11.5-14.5); Segmented Neutrophils % 70.6 %
[2016-06-19 04:36] LABS: Calcium 8.7 mg/dL (8.6-10.8); Potassium 4.5 mEq/L (3.5-4.5)
[2016-06-19] MEDS: *HR* Heparin 5,000 UNIT/ML VIAL SQ SCH (06:30)
[2016-06-19] MEDS: Insulin LISPRO 300 UNITS/3 ML VIAL SQ SCH ×3 (09:47→17:04)
[2016-06-19] MEDS: Lisinopril-HCTZ 20-12.5mg TABLET PO SCH (10:17)
[2016-06-19] MEDS: Diltiazem CD (24hr) 240 MG CAPSULE PO SCH (10:17)
[2016-06-19] MEDS: 0.9 % Sodium Chloride 1,000 ML IVC SCH (10:18)
[2016-06-19 12:17] VITALS: BP 121/58
--- NOTE | 2016-06-19 15:32 | Discharge Summary ---
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 (5) Diabetes Priority: Secondary Status: Acute Qualifiers: Diabetes mellitus type: type 2 Diabetes mellitus complication status: without complication Diabetes mellitus internal medicine specialist insulin use: without fpc use Qualified Code(s): E11.9 - Type 2 diabetes mellitus without complications (6) Hypothyroidism Priority: Secondary Status: Chronic Qualifiers: Hypothyroidism type: unspecified Qualified Code(s): E03.9 - Hypothyroidism , unspecified (7) Hypertension Priority: Secondary Status: Acute Qualifiers: Hypertension type: essential hypertension Qualified Code(s): I10 - Essential (primary) hypertension - Discharge Medications Prescriptions: GlyBURIDE 5 mg PO BIDWM #60 tablet HYDROcodone/Acet 5/325 mg [[place] 5-325 mg] 1 tab PO Q4H PRN #20 tablet PRN Reason: Moderate Pain Home Medications: Atorvastatin [Lipitor] 10 mg PO HS 11/30/14 [History] Diltiazem HCl [Diltiazem 24Hr Cd] 240 mg PO DAILY 11/30/14 [History] Multivitamin [Multivitamins] 1 each PO QPM 11/30/14 [History] Acetaminophen [Tylenol] 650 mg PO Q4H PRN 05/09/16 [History] Cetirizine HCl [All Day Allergy] 10 mg PO DAILY 05/09/16 [History] Docusate Sodium [Dok] 200 mg PO DAILY PRN 05/09/16 [History] Duloxetine HCl [Cymbalta] 60 mg PO DAILY 05/09/16 [History] Ferrous Sulfate [Iron] 325 mg PO DAILY 05/09/16 [History] Hydrocodone/Acetaminophen [[place] 5-325 Tablet] 1 each PO Q4H PRN #15 tablet 10/18 [Rx] Magnesium Hydroxide [Milk of Magnesia] 400 mg PO Q4H PRN 05/09/16 [History] Oxybutynin [Ditropan] 5 mg PO DAILY 05/09/16 [History] Quinapril/Hydrochlorothiazide [Accuretic 20-12.5 mg Tablet] 1 each PO DAILY 10/18 [History] Levothyroxine [Synthroid] 88 mcg PO DAILY #30 tablet 06/13/16 [Rx] GlyBURIDE 5 mg PO BIDWM #60 tablet 06/19/16 [Rx] HYDROcodone/Acet 5/325 mg [[place] 5-325 mg] 1 tab PO Q4H PRN #20 tablet 06/19/16 [Rx] Allergies/Adverse Reactions: Allergies cisplatin Allergy (Verified 06/17/16 08:33) Rash Procedures/tests Complete & Pending: Procedures Performed prior 72 hours Category Date Time Status US retroperitoneal comp [US] Routine Exams 06/17/16 15:08 Completed EV echo guided thoracentesis Routine Y 06/18/16 Completed Date of admission: 06/17/16 03:06 Primary care physician: Miguelangel Nova MD Consults: 06/17/16 13:39 Consult to Oncology [CONS] Routine Consulting Provider: [facility] Reason for Consult: 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 Patient is now in hospital for pleural effusion. Call Completed: Yes 06/17/16 14:45 Consult to Palliative Care [CONS] Stat Comment: discuss goals of care. Consulting Provider: Palliative Care Eliza 06/18/16 09:14 Consult to Interventional Radiology [CONS] Routine Consulting Provider: Radiology Interventional [facility] Reason for Consult: Pleurx catheter Call Completed: Yes Discharging clinician: Nathaniel Caraballo Anticipated date of discharge: 06/19/16 - Patient Status Disposition: Hospice - Home Condition: Fair Functional capacity at discharge: independent ambulation Overall status at discharge: patient is progressing back to baseline - Discharge Instructions Follow Up With: Miguelangel Nova MD [Primary Care Provider] - Forms: ED Satisfaction Letter - Diet and Activity Activity: increase activity as tolerated Diet: advance to your usual diet Hospital course: Ms. German is a 76 year old female with history of ovarian cancer with peritoneal mets sent to ED from cancer center due to shortness of breath. She had received blood transfusion at [facility]. She had been dyspneic for a few days prior but was worse on the day of admission. In ED she was found to have worsening R pleural effusion and admitted. Ms. German was admitted to [facility]. She was seen by pulmonary and given option of thoracentesis (may need to be repeated) versus pleurx catheter. She discussed with her family and ultimately chose pleurx catheter. This was placed 06/18 and she tolerated well. 2 liters of pleural fluid was removed at that time with improvement in her symptoms. She was also seen by the palliative care service and code status changed to DNRCC. Ultimately she opted for Hospice care with [facility]. On 06/19 she felt better. She had more fluid drained. She had no fever and vitals were good. At that time she was felt stable for return to [place] with Hospice services. - Time Spent with Patient Total time spent providing and/or coordinating discharge services: 42min - Constitutional Vitals: Temp Pulse Resp BP Pulse Ox 98.3 F 75 16 121/58 95 06/19/16 12:16 06/19/16 12:16 06/19/16 12:16 06/19/16 12:16 06/19/16 12:16 General appearance: Present: A&O X 3, pleasant - Head Head exam: Present: normocephalic - Eye Eye exam: Present: conjuntiva pink - ENT ENT exam: Present: mucous membranes moist - Respiratory Respiratory exam: Present: decreased breath sounds. Absent: wheezes - Cardiovascular Cardiovascular exam: Present: RRR, systolic murmur - GI/Abdominal GI/Abdominal exam: Present: soft. Absent: tenderness - Extremities Exam Extremities exam: Present: warm - Neurological Exam Neurological exam: Present: alert, oriented X3 - Skin Skin exam: Present: warm
--- NOTE | 2016-06-19 16:02 | Physician Discharge Referral ---
Home Health/Hosp Referral Info Transfer to: Hospice Provider in Charge Post Discharge: PCP - Diagnosis (1) Acute respiratory failure Status: Acute (2) Hyponatremia Status: Acute (3) Pleural effusion Status: Acute (4) Peritoneal carcinoma Status: Chronic (5) Diabetes Status: Acute (6) Hypothyroidism Status: Chronic (7) Hypertension Status: Acute - Respiratory Orders Oxygen / L per min (Keep saturation greater than 90%) Smoking Cessation: Smoking cessation has been advised. For more information, call the [place] Tobacco Quit Line at 4-495-VKUV-NOW. - Diet/Nutrition Diet/Nutrition Orders: Regular - Activity Activity Orders: Up ad dwaine - Services Needed Following services are medically necessary services: Nursing - Transfer Medications Prescriptions: GlyBURIDE 5 mg PO BIDWM #60 tablet HYDROcodone/Acet 5/325 mg [[place] 5-325 mg] 1 tab PO Q4H PRN #20 tablet PRN Reason: Moderate Pain Home Medications: Atorvastatin [Lipitor] 10 mg PO HS 11/30/14 [History] Diltiazem HCl [Diltiazem 24Hr Cd] 240 mg PO DAILY 11/30/14 [History] Multivitamin [Multivitamins] 1 each PO QPM 11/30/14 [History] Acetaminophen [Tylenol] 650 mg PO Q4H PRN 05/09/16 [History] Cetirizine HCl [All Day Allergy] 10 mg PO DAILY 05/09/16 [History] Docusate Sodium [Dok] 200 mg PO DAILY PRN 05/09/16 [History] Duloxetine HCl [Cymbalta] 60 mg PO DAILY 05/09/16 [History] Ferrous Sulfate [Iron] 325 mg PO DAILY 05/09/16 [History] Hydrocodone/Acetaminophen [[place] 5-325 Tablet] 1 each PO Q4H PRN #15 tablet 10/18 [Rx] Magnesium Hydroxide [Milk of Magnesia] 400 mg PO Q4H PRN 05/09/16 [History] Oxybutynin [Ditropan] 5 mg PO DAILY 05/09/16 [History] Quinapril/Hydrochlorothiazide [Accuretic 20-12.5 mg Tablet] 1 each PO DAILY 10/18 [History] Levothyroxine [Synthroid] 88 mcg PO DAILY #30 tablet 06/13/16 [Rx] GlyBURIDE 5 mg PO BIDWM #60 tablet 06/19/16 [Rx] HYDROcodone/Acet 5/325 mg [[place] 5-325 mg] 1 tab PO Q4H PRN #20 tablet 06/19/16 [Rx] Allergies/Adverse Reactions: Allergies cisplatin Allergy (Verified 06/17/16 08:33) Rash Certification: Further, I certify that my clinical findings support that this patient is homebound (i.e. absences from home require considerable and taxing effort and are for medical reasons or orthodox services or infrequently or short duration when for other reasons) because: Homebound Reason: Leaving home requires considerable and taxing effort due to condition, Severity of cardiac or pulmonary status limits activity tolerance Attestation: My signature below is to certify that this patient is under my care and that I, or nurse practitioner, or a physician's chemist assistant working with me, has a face-to -face encounter with this patient.
--- NOTE | 2016-06-19 17:21 | Pulmonology Progress Note ---
Date of Encounter: 06/19/16 Time of Encounter: 11:30 Assessment and Plan (1) Pleural effusion Current Visit: Yes Status: Resolved Pleurx catheter was used and about 700 mL of serosanguineous fluid was drained without complications and patient tolerated procedures well. (2) Acute respiratory failure Current Visit: Yes Status: Resolved Patient feeling much better after Pleurx catheter in draining the fluid Qualifiers: Respiratory failure complication: hypoxia Qualified Code(s): J96.01 - Acute respiratory failure with hypoxia Subjective Principal diagnosis: Pleural effusion Interval history: Patient had Pleurx catheter and she feels much better after intervention Objective PUL Vital signs: Last Vital Signs Temp 98.3 F 06/19/16 12:16 Pulse 75 06/19/16 12:16 Resp 16 06/19/16 12:16 BP 121/58 06/19/16 12:16 Pulse Ox 95 06/19/16 12:16 General appearance: no acute distress Eyes: nonicteric ENT: oropharynx moist Neck: supple Effort: normal Auscultation: left: clear, right: diminished breath sounds Percussion: right: dull Cardiovascular: regular rate and rhythm Gastrointestinal: normoactive bowel sounds Extremities: edema normal mental status, non-focal exam mood appropriate Results - Laboratory Findings CBC and BMP: 06/19/16 04:15 06/19/16 04:15 Abnormal lab findings: Abnormal lab results RBC 3.75 M/mcL (3.82-4.97) L 06/19/16 04:15 Hgb 10.4 g/dL (11.5-15.4) L 06/19/16 04:15 Hct 31.4 % (35.3-44.9) L 06/19/16 04:15 MCH 27.7 pg (28.0-33.3) L 06/19/16 04:15 MPV 8.5 fL (9.4-12.4) L 06/19/16 04:15 Sodium 127 mEq/L (136-145) L 06/19/16 04:15 Chloride 96 mEq/L (98-109) L 06/19/16 04:15 BUN 21 mg/dL (7-20) H 06/19/16 04:15 Creatinine 1.56 mg/dL (0.57-1.11) H 06/19/16 04:15 Est GFR ( Amer) 39 (> 60) L 06/19/16 04:15 Est GFR (Non-Af Amer) 32 (> 60) L 06/19/16 04:15 Glucose 137 mg/dL (70-99) H 06/19/16 04:15 POC Glucose 151 (58-89) H 06/18/16 20:51 Calculated Osmolality 269 (280-300) L 06/19/16 04:15 - Microbiology Findings Microbiology Findings: Microbiology, Last 48 Hours 06/18/16 14:28 Gram Stain - Preliminary Pleural Fluid - Clinical Findings Intake & Output: Intake & Output 06/19/16 06/19/16 06/19/16 07:59 15:59 23:59 Intake Total 0 / 0 1120 / 1120 500 / 500 Output Total 500 / 500 700 / 700 Balance -500 / -500 420 / 420 500 / 500 Weight 72.4 kg Consult Discharge Plan - Plan Instructions: Pleural Effusion (DC) Referrals: Miguelangel Nova MD [Primary Care Provider] - Prescriptions: GlyBURIDE 5 mg PO BIDWM #60 tablet HYDROcodone/Acet 5/325 mg [[place] 5-325 mg] 1 tab PO Q4H PRN #20 tablet PRN Reason: Moderate Pain
== END 2016-06-19 19:05 | disposition hospice, home (50) | DRG 754 ==
LOC: 2NENU 16:15 → EMEROO 16:15 → 2NENU 23:15 → SUATTDRO 06-17 03:06
PROVIDERS: ADMIT Internal Medicine; ATTEND Internal Medicine